=== PATIENT | female | born 1970 | race Caucasian/White ===

== ENCOUNTER 2024-10-30 18:03 | Emergency (ER) | payer OTHER ==
[~2024-10-30] VITALS: Ht 170.2 cm; Wt 70.0 kg
[2024-10-30 18:04] VITALS: TEMP 36.8; O2SAT 99
[2024-10-30] MEDS ORDERED: ONDANSETRON 4MG ODT PO STA (18:47)
[2024-10-30] MEDS ORDERED: KETOROLAC 30MG/ML VIAL IM STA (18:47)
[2024-10-30] MEDS ORDERED: MAGNESIUM/ALUMINUM HYDROXIDE/SIMETHICONE 30ML UDC PO STA (18:47)
[2024-10-30] MEDS: KETOROLAC 30MG/ML VIAL IM NR (20:05)
[2024-10-30] MEDS: ONDANSETRON 4MG ODT PO NR (20:06)
[2024-10-30] MEDS: MAGNESIUM/ALUMINUM HYDROXIDE/SIMETHICONE 30ML UDC PO NR (20:06)
[2024-10-30] MEDS: IBUPROFEN 600MG TABLET PO ONE (20:35)
[2024-10-30 20:36] LABS: *AMPHETAMINES SCREEN URINE NEGATIVE (NEGATIVE); *BARBITURATES SCREEN URINE NEGATIVE (NEGATIVE); *BENZODIAZEPINES SCREEN URINE NEGATIVE (NEGATIVE); *COCAINE SCREEN URINE NEGATIVE (NEGATIVE); CANNABINOID URINE SCREEN NEGATIVE (NEGATIVE); CLARITY URINE CLOUDY (CLEAR); COLOR URINE YELLOW (YELLOW); ECSTASY MDMA SCREEN URINE NEGATIVE (NEGATIVE); GLUCOSE URINE NEGATIVE (NEGATIVE); KETONES URINE NEGATIVE (NEGATIVE); LEUKOCYTE ESTERASE URINE NEGATIVE (NEGATIVE); METHADONE URINE SCREEN NEGATIVE (NEGATIVE); NITRITE URINE NEGATIVE (NEGATIVE); OCCULT BLOOD URINE NEGATIVE (NEGATIVE); OPIATES URINE SCREEN NEGATIVE (NEGATIVE); PH URINE 7.5 (4.5-8.0); PHENCYCLIDINE URINE SCREEN NEGATIVE (NEGATIVE); PROTEIN URINE NEGATIVE (NEGATIVE); SPECIFIC GRAVITY URINE 1.014 (1.005-1.030); UROBILINOGEN URINE 0.2 E.U./dL (0.2-1.0)
[2024-10-30] MEDS: TRAMADOL 50MG TABLET PO ONE (20:43)
[2024-10-30 21:10] LABS: BACTERIA URINE 3+; RBC URINE 0-2 /hpf (0-2); SQUAMOUS EPITHELIAL CELL URINE 1+ /lpf (RARE/1+); WBC URINE 0-2 /hpf (0-2)
[2024-10-30 22:47] LABS: HEMATOCRIT. 44.6 % (36.0-48.0); HEMOGLOBIN. 14.5 g/dL (12.0-16.0); MEAN CORPUSCULAR HEMOGLOBIN 29.9 pg (28.0-32.0); MEAN CORPUSCULAR HGB CONC 32.6 g/dL (31.0-37.0); MEAN CORPUSCULAR VOLUME 91.9 fL (81.0-99.0); MEAN PLATELET VOLUME 7.3 fl (7.4-10.4); PLATELET 416 x1000/uL (130-400); RED BLOOD CELL COUNT 4.85 mill/uL (4.2-5.4); RED CELL DISTRIBUTION WIDTH 13.3 % (11.6-14.6); WHITE BLOOD COUNT 24.5 x1000/uL (4.5-11.0)
[2024-10-30 22:49] LABS: CHLORIDE 101 mEq/L (98-107); POTASSIUM 3.8 mEq/L (3.5-5.1); SODIUM 135 mEq/L (136-145)
[2024-10-30 22:50] LABS: CALCIUM 9.9 mg/dL (8.7-10.4); CARBON DIOXIDE 23 mEq/L (21-32); DIFFERENTIAL COMMENT 1
[2024-10-30 22:52] LABS: INR 0.9; PROTHROMBIN TIME 10.3 sec (9.6-11.0)
[2024-10-30 22:55] LABS: CREATININE 0.8 mg/dL (0.6-1.0); GLUCOSE 159 mg/dL (70-105); UREA NITROGEN BLOOD 7 mg/dL (9-23)
[2024-10-30 22:57] LABS: ALANINE AMINOTRANSFERASE 12 IU/L (10-49); ALBUMIN 4.5 g/dL (3.2-4.8); ASPARTATE AMINOTRANSFERASE 21 IU/L (<34); BILIRUBIN TOTAL 0.3 mg/dL (0.1-1.0); PROTEIN TOTAL 7.4 g/dL (6.0-8.3)
[2024-10-30 23:02] LABS: BILIRUBIN DIRECT < 0.1 mg/dL (<=3.0); ETHANOL BLOOD < 10 mg/dL (<10)
[2024-10-30] MEDS ORDERED: DOCU-138 MT (23:18)
[2024-10-30] MEDS ORDERED: SENN-362 MT (23:18)
[2024-10-30] MEDS ORDERED: POLY17PO3 MT (23:18)
[2024-10-30 23:26] LABS: PLATELET ESTIMATE NORMAL
[2024-10-31 00:45] VITALS: BP 130/86; PULSE 106; RESP 20; O2SAT 99
== END 2024-10-31 00:50 | disposition home or self-care (01) ==
LOC: ER 18:03
DX: K59.00 Constipation, unspecified (principal); Z90.49 Acquired absence of other specified parts of digestive tract
CPT/HCPCS: 80076; 80305; 80048; 81003; 80320; 83690; 85025; 85610; 36415; 74176; 99284; J1885; Q0162; G0480

== ENCOUNTER 2024-11-11 23:11 | Emergency (ER) | payer OTHER ==
[~2024-11-11] VITALS: Ht 167.6 cm; Wt 91.0 kg
[~2024-11-11 23:11] MED LIST: DOCU-138 MT; POLY17PO3 MT; SENN-362 MT
[2024-11-11 23:13] VITALS: O2SAT 99
[2024-11-12] MEDS: SODIUM CHLORIDE 0.9% 1,000 ML IV ONE (00:17)
[2024-11-12 00:40] LABS: BASOPHILS % 0.5 % (0.0-2.0); EOSINOPHILS % 1.7 % (0.0-5.0); HEMATOCRIT. 37.1 % (36.0-48.0); HEMOGLOBIN. 12.5 g/dL (12.0-16.0); LYMPHOCYTES % 22.7 % (20.0-50.0); MEAN CORPUSCULAR HEMOGLOBIN 30.4 pg (28.0-32.0); MEAN CORPUSCULAR HGB CONC 33.6 g/dL (31.0-37.0); MEAN CORPUSCULAR VOLUME 90.7 fL (81.0-99.0); MEAN PLATELET VOLUME 7.4 fl (7.4-10.4); MONOCYTES % 11.8 % (2.0-8.0); NEUTROPHILS % 63.3 % (40.0-76.0); PLATELET 426 x1000/uL (130-400); RED CELL DISTRIBUTION WIDTH 13.5 % (11.6-14.6)
[2024-11-12 00:47] LABS: CALCIUM 9.6 mg/dL (8.7-10.4); CARBON DIOXIDE 25 mEq/L (21-32); CHLORIDE 106 mEq/L (98-107); SODIUM 139 mEq/L (136-145)
[2024-11-12 00:52] LABS: CREATININE 0.8 mg/dL (0.6-1.0); GLUCOSE 111 mg/dL (70-105)
[2024-11-12 00:53] LABS: UREA NITROGEN BLOOD 11 mg/dL (9-23)
[2024-11-12 01:23] LABS: HCG SCREEN NEGATIVE
[2024-11-12 01:54] LABS: ETHANOL BLOOD < 10 mg/dL (<10)
[2024-11-12 02:03] LABS: CLARITY URINE CLOUDY (CLEAR); COLOR URINE DARK YELLOW (YELLOW); GLUCOSE URINE NEGATIVE (NEGATIVE); KETONES URINE TRACE (NEGATIVE); LEUKOCYTE ESTERASE URINE 1+ (NEGATIVE); NITRITE URINE NEGATIVE (NEGATIVE); OCCULT BLOOD URINE NEGATIVE (NEGATIVE); PROTEIN URINE 1+ (NEGATIVE); SPECIFIC GRAVITY URINE 1.028 (1.005-1.030)
[2024-11-12 02:31] LABS: *AMPHETAMINES SCREEN URINE NEGATIVE (NEGATIVE); *BARBITURATES SCREEN URINE NEGATIVE (NEGATIVE); *BENZODIAZEPINES SCREEN URINE NEGATIVE (NEGATIVE); *COCAINE SCREEN URINE NEGATIVE (NEGATIVE)
[2024-11-12 02:32] LABS: CANNABINOID URINE SCREEN NEGATIVE (NEGATIVE); ECSTASY MDMA SCREEN URINE CONF.TEST INDICATED (NEGATIVE); METHADONE URINE SCREEN NEGATIVE (NEGATIVE); OPIATES URINE SCREEN NEGATIVE (NEGATIVE); PHENCYCLIDINE URINE SCREEN NEGATIVE (NEGATIVE)
[2024-11-12] MEDS ORDERED: NALO4SPR BOTHNSTRLS (02:45)
[2024-11-12 03:35] LABS: SQUAMOUS EPITHELIAL CELL URINE FEW /lpf (RARE/1+)
[2024-11-12 03:37] LABS: BACTERIA URINE 1+; RBC URINE 0-2 /hpf (0-2)
[2024-11-12 04:17] VITALS: BP 109/72; PULSE 81; RESP 13; O2SAT 99
== END 2024-11-12 04:38 | disposition home or self-care (01) ==
LOC: ER 23:11
DX: F11.20 Opioid dependence, uncomplicated (principal); I95.9 Hypotension, unspecified; Z79.899 Other long term (current) drug therapy
CPT/HCPCS: 36415; 93005; 99284; 80305; 80048; 81003; 80320; 84703; 85025; 96360; J7030; G0480